=== PATIENT | male | born 2000 | race Caucasian/White ===

== ENCOUNTER → 2020-04-21 | Outpatient (CLI) | payer OTHER ==
[2020-04-21 08:59] LABS: HEMOGLOBIN 14.9 gm/dl (14.0-17.5); RED BLOOD COUNT 4.85 M/UL (4.20-5.50); WHITE BLOOD COUNT 8.7 K/UL (4.5-11.0)
[2020-04-21 09:21] LABS: BUN/CREATININE RATIO 11 (0-10)
[2020-04-22 10:10] LABS: T3 UPTAKE 27 % (24-39)
[2020-04-22 12:09] LABS: VITAMIN D, 25-HYDROXY 24.9 ng/mL (30.0-100.0)
== END ==
LOC: LAB 08:06
PROVIDERS: Registered Nurse Administrator
DX: Z51.81 Encounter for therapeutic drug level monitoring (principal); F20.0 Paranoid schizophrenia; Z79.899 Other long term (current) drug therapy
CPT/HCPCS: 36415; 80053; 80061; 80178; 82607; 82746; 83036; 84439; 84443; 84479; 85025

== ENCOUNTER → 2020-08-29 | Outpatient (CLI) | payer OTHER | LOC: MRI 07-26 09:00 → CATH 07-26 10:00 → MRI 08-16 08:30 | DX: R55 Syncope and collapse (principal) | CPT/HCPCS: 70551 ==